=== PATIENT | male | born 1945 | race Caucasian/White ===

== ENCOUNTER 2016-11-01 17:01 | Inpatient (IN) | payer MEDICARE, BC ==
[2016-11-01] MEDS ORDERED: LIPITOR20 M1 PO (18:54)
[2016-11-01] MEDS ORDERED: COENZYME Q1030 M1 PO (18:55)
[2016-11-01] MEDS ORDERED: PROSCAR5 M1 PO (18:55)
[2016-11-01] MEDS ORDERED: VITAMIN D31000 UNI3 PO (18:55)
[2016-11-01] MEDS ORDERED: LASIX20 M1 PO (18:56)
[2016-11-01] MEDS ORDERED: FLECAINIDE ACE100 M1 PO (18:56)
[2016-11-01] MEDS ORDERED: HYDROCHLOROTHIA25 M1 PO (18:58)
[2016-11-01] MEDS ORDERED: PRINIVIL20 M1 PO (18:58)
[2016-11-01] MEDS ORDERED: MULTI VITAMIN1 EAC2 PO (19:00)
[2016-11-01] MEDS ORDERED: XARELTO20 M1 PO (19:00)
[2016-11-01] MEDS ORDERED: CELEBREX200 M1 PO (19:01)
[2016-11-01 22:59] LABS: PROCALCITONIN 0.14 ng/ml (0.05-0.09)
[2016-11-02 05:22] LABS: HGB-HEMOGLOBIN 6.4 gm/dl (13.5-17.0); MCV (MEAN CELL VOLUME) 91.5 fl (82.0-96.0); MEAN PLATELET VOLUME 9.5 cmc (9.4-12.4); NEUTROPHIL-AUTOMATED 9.9 tho/cmm (1.6-8.0); PLATELET COUNT 356 tho/cmm (150-450); RED BLOOD COUNT 2.13 mil/cmm (4.40-5.70); RED CELL DISTRIBUTION WIDTH 14.4 % (12.4-16.4); WHITE BLOOD COUNT 12.1 tho/cmm (4.0-10.0)
[2016-11-02 05:30] LABS: ANION GAP 14 mmol/L (0-20); BLOOD UREA NITROGEN 82 mg/dl (6-24); CALCIUM 7.9 mg/dl (8.5-10.5); CARBON DIOXIDE-VENOUS 26 mmol/L (22-32); CHLORIDE 101 mmol/l (96-110); CREATININE 1.34 mg/dl (0.60-1.30); GLUCOSE 134 mg/dL (70-110); POTASSIUM 3.9 mmol/L (3.7-5.1); SODIUM 137 mmol/L (135-145); eGFR VALUE FOR BLACK 61 mL/Min
[2016-11-02 05:51] LABS: HCT-HEMATOCRIT 19.5 % (36.0-53.5); MCHC MEAN CORPUSCULAR HGB CONC 32.8 % (32.0-36.0)
[2016-11-02 06:51] LABS: BAND % 6 % (0-20); BAND ABSOLUTE COUNT 0.7 tho/cmm (0-2.0)
[2016-11-03 12:13] LABS: HGB-HEMOGLOBIN 7.8 gm/dl (13.5-17.0); MCV (MEAN CELL VOLUME) 89.7 fl (82.0-96.0); RED CELL DISTRIBUTION WIDTH 16.9 % (12.4-16.4)
[2016-11-03 12:17] LABS: HCT-HEMATOCRIT 23.4 % (36.0-53.5)
[2016-11-04 07:35] LABS: HGB-HEMOGLOBIN 7.9 gm/dl (13.5-17.0); MCV (MEAN CELL VOLUME) 91.3 fl (82.0-96.0); RED CELL DISTRIBUTION WIDTH 17.2 % (12.4-16.4)
[2016-11-04] MEDS ORDERED: LIPITOR40 M1 PO (08:22)
[2016-11-04] MEDS ORDERED: LIPITOR20 M1 PO (08:25)
[2016-11-04] MEDS ORDERED: PROTONIX40 M2 PO (11:35)
[2017-01-01] MEDS ORDERED: PROTONIX40 M2 PO (12:01)
[2017-01-01] MEDS ORDERED: CPAP (12:01)
[2017-01-01] MEDS ORDERED: LOVENOX40 MG/0.1 SC (12:05)
== END 2016-11-04 12:05 | DRG 378 ==
LOC: PCUA 17:01
PROVIDERS: Internal Medicine; Registered Nurse; ADMIT Family Medicine
PROC: 0W3P8ZZ Control Bleeding in Gastrointestinal Tract, Via Natural or Artificial Opening Endoscopic (ICD-10-PCS; principal; 2016-11-02)
DX: K92.2 Gastrointestinal hemorrhage, unspecified (principal); D62 Acute posthemorrhagic anemia; N17.9 Acute kidney failure, unspecified; I48.91 Unspecified atrial fibrillation; I10 Essential (primary) hypertension; N40.0 Benign prostatic hyperplasia without lower urinary tract symptoms; G47.33 Obstructive sleep apnea (adult) (pediatric); E78.5 Hyperlipidemia, unspecified; R73.9 Hyperglycemia, unspecified; Z79.01 Long term (current) use of anticoagulants
CPT/HCPCS: C9113; J2270; J7030; P9016